=== PATIENT | male | born 1960 | race Caucasian/White ===

== ENCOUNTER 2020-09-03 18:48 | Inpatient (IN) | payer BC ==
[~2020-09-03] VITALS: Ht 182.9 cm; Wt 74.4 kg
[2020-09-03] MEDS ORDERED: XANAX0.25 MG PO (21:38)
[2020-09-03] MEDS ORDERED: ZYRTEC10 MG PO (21:39)
[2020-09-03] MEDS ORDERED: OXYCODONE HCL10 MG PO (21:39)
[2020-09-04 00:06] LABS: RED BLOOD COUNT 4.04 M/UL (4.20-5.50); WHITE BLOOD COUNT 11.9 K/UL (4.5-11.0)
[2020-09-04 00:24] LABS: BUN/CREATININE RATIO 17 (0-10)
--- NOTE | 2020-09-04 17:45 | NUR ---
PT DOUBLE BED ALARMED. YELLOW BRACELET PLACED ON PT. YELLOW SOCKS ON PT. GOWN ON AND FALL RISK LIGHT ON OUTSIDE OF ROOM AND STICKERS PLACED ON PT CHART TO ALERT COWORKERS. DISCUSSED WITH BRAD SANTOS, PT AT HIGH RISK FOR FALLS. PT WAS REPEATEDLY EDUCATED ON THE RISKS OF GETTING UP WITHOUT USING HIS CALL LIGHT OR ASKING FOR HELP. HE STATED THAT HE UNDERSTOOD. HE IS ALERT AND ORIENTED X3. HOWEVER, PT DOES NOT FOLLOW RECOMMENDATIONS REGARDLESS OF REPEATED EDUCATION AND DIRECTION. PT REMOVED YELLOW GOWN BECAUSE "HE WANTS TO WEAR HIS OWN CLOTHES" AND REMOVED THE YELLOW SOCKS. NURSE TRANSPLANT NOTIFIED TO REQUEST SITTER FOR NIGHTSHIFT BC OF RISK OF FALLS AND NONCOMPLIANCE. FRESNO STATED THAT [place] ON NIGHTS COULD BE USED TO SIT WITH 5119 FOR SAFETY PRECAUTIONS. CALL LIGHT IS WITHIN REACH OF PT, TABLE WITHIN REACH, ROOM CLEARED OF ANY ITEMS TO POSE THREAT TO AMBULATION. PT AGAIN EDUCATED ON STAYING IN THE BED AND USING CALL LIGHT. HE STATED THAT HE UNDERSTOOD AND APOLOGIZED FOR NOT DOING SO. TONO.
[2020-09-05 03:51] LABS: HEMOGLOBIN 12.3 gm/dl (14.0-17.5); RED BLOOD COUNT 3.8 M/UL (4.20-5.50)
[2020-09-05 04:03] LABS: WHITE BLOOD COUNT 18.4 K/UL (4.5-11.0)
[2020-09-05 04:14] LABS: BUN/CREATININE RATIO 25 (0-10)
[2020-09-05] MEDS ORDERED: PERCOCET 7.5-31 EACH PO ×3 (11:29→13:15)
--- NOTE | 2020-09-05 14:06 | NUR ---
1310 PT WAS ANXIOUS WANTING TO SPEAK WITH MD REGARDING NOT BEIN DISCHARGED, (PT WAS TOLD BY [facility]THO THAT HE COULD GO HOME), PT SPEAK IS FAST AND HE WILL JUMP FROM ONE SUBJECT TO THE NEXT, SOMETIMES NOT MAKING SENSE, GOING ALL AROUND THE SUBJECT. DR. MOCK CALLED AND NOTIFIED STATES WILL COME AND SEE THE PT. INFORMED PT OF THIS, VERY UPSET THAT THE PHYSICIAN DID NOT COME RIGHT THEN AND SEE HIM, I TRIED TO EXPLAIN ALL THE PROCESSES FROM ADMISSION TO DISCHARGE, THE PT WAS NOT ABLE TO UNDERSTAND, AND WOULD START THE CONVERSATION BACK TO A BIG STORY ABOUT THE ALF. [address] RIVERA AGAIN TO INFORM HIM HE IS VERY ADAMANT ABOUT SPEAKING WITH THE PHYSCIAN, DR. MOCK STATES HE WILL COME AND SEE THE PT. 1430- DR. MOCK AND MYSELF SPOKE WITH THE PATIENT, AT THIS TIME, THE PATIENT IS UNDERSTANDING THE PLAN OF CARE AND AGREES TO STAY THE NIGHT.
[2020-09-06 04:54] LABS: HEMOGLOBIN 12.3 gm/dl (14.0-17.5); RED BLOOD COUNT 3.81 M/UL (4.20-5.50); WHITE BLOOD COUNT 16.2 K/UL (4.5-11.0)
[2020-09-06 05:05] LABS: BUN/CREATININE RATIO 25 (0-10)
[2020-09-06] MEDS ORDERED: PERCOCET 7.5-31 EACH PO (15:01)
[2020-09-06] MEDS ORDERED: ASPIRIN325 MG PO (15:15)
== END 2020-09-06 15:34 | disposition home or self-care (01) | DRG 481 ==
LOC: M/S 22:16 → EDBD 22:16 → M/S 09-06 15:34
PROVIDERS: Internal Medicine; Orthopaedic Surgery; ADMIT Internal Medicine
PROC: 0QS704Z Reposition Left Upper Femur with Internal Fixation Device, Open Approach (ICD-10-PCS; principal; 2020-09-04 11:45)
DX: S72.402A Unspecified fracture of lower end of left femur, initial encounter for closed fracture (principal); R65.10 Systemic inflammatory response syndrome (SIRS) of non-infectious origin without acute organ dysfunction; E87.2 Acidosis; W18.30XA Fall on same level, unspecified, initial encounter; F32.9 Major depressive disorder, single episode, unspecified; F41.9 Anxiety disorder, unspecified; F17.200 Nicotine dependence, unspecified, uncomplicated; Z20.822 Contact with and (suspected) exposure to COVID-19; Z88.0 Allergy status to penicillin
CPT/HCPCS: 36415; 73502; 76000; 80048; 80053; 80307; 82550; 82553; 83605; 83735; 84100; 84439; 84443; 84484; 85025; 85027; 85652; 86140; 86850; 86900; 86901; 87635; 93005; 93971; 97110-GP-CQ; 97116-GP-CQ; 97161; 97166; C1713; J0171; J0690; J1100; J1170; J1650; J2001; J2250; J2405; J2704; J2710; J2795; J3010; J7120